=== PATIENT | female | born 1965 ===

== ENCOUNTER 2016-08-18 18:16 | Emergency (ER) | payer MEDICAID ==
[2016-08-18 18:25] VITALS: BMI 24.0
[2016-08-18 18:26] VITALS: BP 105/78; PULSE 70; RESP 18; TEMP 97.8; O2SAT 99
[2016-08-18] MEDS ORDERED: Alum-Mag Hydrox-Simethicone Susp (30 mL) PO STA (18:37)
--- NOTE | 2016-08-18 19:01 | ED PDOC ---
HPI: General Adult Time Seen by Provider: 08/18/16 18:33 Chief Complaint (Nursing): Lower Extremity Problem/Injury Chief Complaint (Provider): Fall History Per: Patient History/Exam Limitations: no limitations Onset/Duration Of Symptoms: Hrs (x1 hour ago) Have you had recent travel within the past 21 days to any of the following countries: [place], [place], [place] or [place]?: No Current Symptoms Are (Timing): Still Present Severity: Moderate Location: b/l hands and knees Additional Complaint(s): Rena Hobbs is a 51 year old female who presents to the emergency department for the evaluation of a knee injury, that the patient experienced x1 hour prior to arrival. Patient states she slipped and fell forward onto uneven pavement, landing on her hands and knees. Pain reportedly occurs with ambulation. Denies nausea, vomiting, chills, loss of consciousness, or a head injury. Of note, patient has a history of abdominal pain (x1-2 years) that increased in aggravation this week; however, exacerbating factors are unknown. Denies associated vomiting, nausea, or chills. Endoscopy done last year and is within normal limits. Started taking omeprazole afterwards. PMD: Cammie aGrcia Past Medical History Reviewed: Historical Data, Nursing Documentation, Vital Signs Vital Signs: Last Vital Signs Temp 97.8 F 08/18/16 18:21 Pulse 70 08/18/16 18:21 Resp 18 08/18/16 18:21 BP 105/78 08/18/16 18:21 Pulse Ox 99 08/18/16 20:20 - Medical History PMH: No Chronic Diseases - Surgical History Surgical History: Endoscopy - Family History Family History: States: Unknown Family Hx - Social History Alcohol: None Drugs: Denies - Home Medications Home Medications: Ambulatory Orders Medication Instructions Recorded Acetaminophen/Oxycodone Hydr 1 tab PO PRN PRN #10 tab 02/06/14 [Percocet 325 mg-5 mg] Cephalexin [Keflex] 500 mg PO TID #21 cap 02/06/14 Bacitracin OINT 1 applic TP BID #1 tube 08/18/16 Ranitidine HCl [Zantac 75] 75 mg PO BID #10 tablet 08/18/16 oxyCODONE/Acetaminophen [Percocet 1 ea PO Q6 PRN #8 tab 08/18/16 5/325 mg Tab] - Allergies Allergies/Adverse Reactions: Allergies Allergy/AdvReac Type Severity Reaction Status Date / Time No Known Allergies Allergy Verified 02/06/14 01:11 Review of Systems ROS Statement: Except As Marked, All Systems Reviewed And Found Negative Constitutional: Negative for: Chills Gastrointestinal: Positive for: Abdominal Pain. Negative for: Nausea, Vomiting Musculoskeletal: Positive for: Hand Pain (b/l), Leg Pain ((+) b/l knee pain). Negative for: Other (head pain/injury) Neurological: Negative for: Weakness, Numbness, Other (loss of consciousness) Physical Exam - Reviewed Nursing Documentation Reviewed: Yes Vital Signs Reviewed: Yes - Physical Exam Appears: Positive for: Non-toxic, No Acute Distress Head Exam: Positive for: ATRAUMATIC, NORMAL INSPECTION, NORMOCEPHALIC Skin: Positive for: Normal Color, Warm, Dry Eye Exam: Positive for: Normal appearance, PERRL ENT: Positive for: Normal ENT Inspection. Negative for: Pharyngeal Erythema, Tonsillar Exudate, Tonsillar Swelling Neck: Positive for: Normal, Painless ROM. Negative for: Decreased ROM Cardiovascular/Chest: Positive for: Regular Rate, Rhythm. Negative for: Murmur Respiratory: Positive for: Normal Breath Sounds. Negative for: Wheezing, Respiratory Distress Gastrointestinal/Abdominal: Positive for: Normal Exam, Tenderness (epigastric pain, worsened within past x2 days). Negative for: Mass, Guarding, Rebound Back: Positive for: Normal Inspection. Negative for: L CVA Tenderness, R CVA Tenderness Extremity: Positive for: Normal ROM, Swelling (anteriorly right knee, inclusive of an abrasion), Other (left knee abrasion, able to flex and extend w/out difficulty; limited due to pain). Negative for: Tenderness, Deformity Neurologic/Psych: Positive for: Alert, Oriented. Negative for: Motor/Sensory Deficits - Laboratory Results Result Diagrams: 08/18/16 18:50 08/18/16 18:50 - ECG O2 Sat by Pulse Oximetry: 99 (RA) Pulse Ox Interpretation: Normal - Progress ED Course And Treament: xry knee: wnl US abdomen: no gallstones noted pepid 20 mg iv x 1 dose toradol 15 mg iv x 1 dose d/w patient importance of f/u with GI with regards to abdominal pain. Medical Decision Making Medical Decision Makin:33 Initial Impression: chronic abdominal pain, fall, knee injury Initial Plan: * Knee X-Ray * US Abdomen Limited * CBC * CMP * Lipase * Beta-HCG Quantitative * Urine * Aluminum Hydroxide/Magnesium 30ml PO * Pepcid 20mg IVP * Toradol 15mg IVP * Reevaluation Knee X-Ray is within normal limits. Scribe Attestation: Documented by Ray Boo, training under Elke Collins, acting as a scribe for Hayden Abdul PA-C. Provider Scribe Attestation: All medical record entries made by the Scribe were at my direction and personally dictated by me. I have reviewed the chart and agree that the record accurately reflects my personal performance of the history, physical exam, medical decision making, and the department course for this patient. I have also personally directed, reviewed, and agree with the discharge instructions and disposition. Disposition - Clinical Impression Clinical Impression: Knee injury, Gastritis - Patient ED Disposition Is Patient to be Admitted: No - Disposition Referrals: Chino Xavier MD [Staff Provider] - Dimas Alarcon MD [Staff Provider] - Disposition: Routine/Home Disposition Time: 21:16 Condition: FAIR Prescriptions: Bacitracin OINT 1 applic TP BID #1 tube oxyCODONE/Acetaminophen [Percocet 5/325 mg Tab] 1 ea PO Q6 PRN #8 tab PRN Reason: Pain, Severe (8-10) Ranitidine HCl [Zantac 75] 75 mg PO BID #10 tablet Instructions: Diet for Ulcers and Gastritis (ED), Knee Sprain (ED) Forms: [facility] ED School/Work Excuse Print Language: CENTRAL AFRICAN
[2016-08-18 19:20] LABS: BASO % 0.8 % (0.0-2.0); EOS # 0.1 K/uL (0.0-0.7); EOS % 1.8 % (0.0-4.0); LYMPH # 1.3 K/uL (1.0-4.3); LYMPH % 31.4 % (20.0-40.0); MEAN CELL VOLUME 87.5 fl (81.0-99.0); MEAN CORPUSCULAR HEMOGLOBIN 29.3 pg (27.0-31.0); MEAN CORPUSCULAR HGB CONC 33.4 g/dL (33.0-37.0); MEAN PLATELET VOLUME 10.5 fl (7.2-11.7); MONO # 0.4 K/uL (0.0-0.8); MONO % 10.7 % (0.0-10.0); NEUT # 2.3 K/uL (1.8-7.0); NEUT % 55.3 % (50.0-75.0); RED CELL DISTRIBUTION WIDTH 13.4 % (11.5-14.5); WHITE BLOOD COUNT 4.2 K/uL (4.8-10.8)
[2016-08-18 19:27] LABS: ALB/GLOB RATIO 1.4 (1.0-2.1); ALKALINE PHOSPHATASE 82 U/L (38-126); ALT/SGPT 28 U/L (9-52); AST/SGOT 52 U/L (14-36); BILIRUBIN,TOTAL 0.4 mg/dl (0.2-1.3); BLOOD UREA NITROGEN 16 mg/dl (7-17); CALCIUM 9.5 mg/dL (8.4-10.2); CARBON DIOXIDE 29 mmol/L (22-30); CHLORIDE 102 mmol/L (98-107); GFR AFRICAN-AMERICAN > 60; GLUCOSE,RANDOM 92 mg/dL (65-105); LIPASE 52 U/L (23-300); SODIUM 144 mmol/l (132-148); TOTAL PROTEIN 7.4 G/DL (6.3-8.2)
[2016-08-18] MEDS ORDERED: Alum-Mag Hydrox-Simethicone Susp (30 mL) ONE (19:53)
--- NOTE | 2016-08-18 20:46 | US ---
EXAM: US Abdomen Limited, Right Upper Quadrant CLINICAL HISTORY: 51 years old, female; Pain; Abdominal pain; Epigastric; Additional info: R/O gallstone TECHNIQUE: Real-time ultrasound of the right upper quadrant with image documentation. EXAM DATE/TIME: 08/18/2016 6:39 PM COMPARISON: There are no prior studies for comparison. FINDINGS: Liver: Liver is unremarkable. There is hepatopedal flow in the main portal vein. Gallbladder: Gallbladder is partially distended with no stones, sludge or wall thickening. Gallbladder wall measures 1.5 mm in width. Common bile duct: Common bile duct measures 3.1 mm in diameter. Pancreas: Pancreas is partially obscured by bowel gas. Right kidney: Right kidney is unremarkable. Lower pole is partially secured by bowel gas. Aorta: Visualized portions of the aorta and inferior vena cava are unremarkable. IMPRESSION: No gallstones or ductal dilatation; incomplete gallbladder distention due to nonfasting state Patient was not tender over the gallbladder
--- NOTE | 2016-08-19 10:56 | RAD ---
PROCEDURE: Right Knee Radiographs. HISTORY: KNEE INJURY COMPARISON: None. FINDINGS: BONES: Normal. No fracture. JOINTS: Normal. No osteoarthritis. JOINT EFFUSION: None. OTHER FINDINGS: None. IMPRESSION: No acute findings related to/accounting for the clinical presentation.
== END 2016-08-18 21:30 | disposition home or self-care (01) ==
LOC: H.ER 18:16
DX: K29.70 Gastritis, unspecified, without bleeding (principal); S89.90XA Unspecified injury of unspecified lower leg, initial encounter; W00.0XXA Fall on same level due to ice and snow, initial encounter; Y92.9 Unspecified place or not applicable